=== PATIENT | female | born 1955 | race Asian ===

== ENCOUNTER 2017-02-03 12:41 | Emergency (ER) | payer BC ==
[~2017-02-03] VITALS: Ht 149.9 cm; Wt 45.4 kg
[2017-02-03] MEDS ORDERED: BRIN8DRO EACHEYE (13:07)
[2017-02-03] MEDS ORDERED: HYDR25TA6 PO (13:07)
[2017-02-03] MEDS ORDERED: [UNRECOGNIZED DRUG - CODE] PO (13:07)
[2017-02-03] MEDS ORDERED: TIMO5DRO28 EACHEYE (13:07)
[2017-02-03] MEDS ORDERED: LAMI100T4 PO (13:07)
[2017-02-03] MEDS ORDERED: BIMA2.5D EACHEYE (13:07)
[2017-02-03] MEDS ORDERED: POTA99TA24 PO (13:07)
[2017-02-03] MEDS ORDERED: AMLO10TA2 PO (13:07)
[2017-02-03] MEDS ORDERED: NADO40TA PO (13:07)
[2017-02-03 13:47] LABS: HEMATOCRIT 45.7 % (34.6-47.8); HEMOGLOBIN 15.6 g/dL (11.7-16.4); WHITE BLOOD COUNT 6.7 x10^3/uL (3.4-10)
[2017-02-03 13:57] LABS: BLOOD UREA NITROGEN 14 mg/dL (7-18)
[2017-02-03] MEDS ORDERED: POTASSIUM CHLORIDE 10% 40 MEQ/30 ML UDC PO ONE (15:00)
[2017-02-03] MEDS ORDERED: HYDROcodone/APAP 5/325 TABLET PO ONE (15:00)
[2017-02-03] MEDS ORDERED: HYDROcodone/APAP 5/325 TABLET ONE (15:13)
[2017-02-03] MEDS ORDERED: POTASSIUM CHLORIDE 20 MEQ TAB.ER.PRT PO ONE ×2 (15:30)
[2017-02-03 16:37] VITALS: BP 153/92
[2017-02-04] MEDS ORDERED: POTA20TA6 PO (15:13)
== END 2017-02-03 16:39 | disposition home or self-care (01) ==
LOC: ED 13:46
DX: H54.61 Unqualified visual loss, right eye, normal vision left eye (principal); R51 Headache; E87.6 Hypokalemia; I10 Essential (primary) hypertension; B19.10 Unspecified viral hepatitis B without hepatic coma; E78.5 Hyperlipidemia, unspecified; Z82.3 Family history of stroke; Z88.2 Allergy status to sulfonamides
CPT/HCPCS: 36415; 70450; 80048; 82040; 85025; 85651

== ENCOUNTER 2017-02-04 14:13 | Inpatient (IN) | payer BC ==
[~2017-02-04] VITALS: Ht 149.9 cm; Wt 47.1 kg
[~2017-02-04 14:13] MED LIST: AMLO10TA2 PO; BIMA2.5D EACHEYE; BRIN8DRO EACHEYE; HYDR25TA6 PO; LAMI100T4 PO; NADO40TA PO; POTA99TA24 PO; TIMO5DRO28 EACHEYE; [UNRECOGNIZED DRUG - CODE] PO
[2017-02-04] MEDS ORDERED: methylPREDNISolone SOD SUCC 125 MG/2 ML IVPush SCH (15:00)
[2017-02-04 15:13] LABS: HEMATOCRIT 47.5 % (34.6-47.8); HEMOGLOBIN 16.2 g/dL (11.7-16.4); WHITE BLOOD COUNT 5.2 x10^3/uL (3.4-10)
[2017-02-04] MEDS ORDERED: POTA20TA6 PO (15:13)
[2017-02-04 15:20] LABS: BLOOD UREA NITROGEN 11 mg/dL (7-18)
[2017-02-04 15:23] LABS: ASPARTATE AMINO TRANSFERASE 26 U/L (15-37)
[2017-02-04] MEDS ORDERED: HYDROcodone/APAP 5/325 TABLET PO PRN (16:30)
[2017-02-04] MEDS ORDERED: BISACODYL 10 MG SUPP PR PRN (16:30)
[2017-02-04] MEDS ORDERED: LABETALOL 5MG/ML, 20ML IVPush PRN (16:30)
[2017-02-04] MEDS ORDERED: POLYETHYLENE GLYCOL 17 GM PACKET PO PRN (16:30)
[2017-02-04] MEDS ORDERED: DOCUSATE 100 MG CAPSULE PO PRN (16:30)
[2017-02-04] MEDS ORDERED: ENALAPRILAT 1.25 MG/ML, 2ML IVPush PRN (16:30)
[2017-02-04] MEDS ORDERED: ACETAMINOPHEN 325 MG TABLET PO PRN (16:30)
[2017-02-04] MEDS ORDERED: morphine SULFATE 10 MG/ML, 1ML IVPush PRN (16:30)
[2017-02-04] MEDS ORDERED: ONDANSETRON 2MG/ML, 2ML IVPush PRN (16:30)
[2017-02-04] MEDS ORDERED: POTASSIUM CHLORIDE 20 MEQ TAB.ER.PRT PO ONE (17:00)
[2017-02-04] MEDS: TEMPLATE NON-FORMULARY MED. (Bimatoprost (Lumigan) 1 DROP) EACHEYE SCH (17:30)
[2017-02-04] MEDS ORDERED: TIMOLOL OPHTH 0.5%, 5ML OP SCH (17:30)
[2017-02-04] MEDS: METOPROLOL TARTRATE 50 MG TABLET PO SCH (18:02)
[2017-02-04] MEDS: ASPIRIN 325 MG TABLET EC PO SCH (18:02)
[2017-02-04] MEDS: ENOXAPARIN 40 MG/0.4 ML SQ SCH (18:06)
[2017-02-04] MEDS ORDERED: OMNIPAQUE 350 MG/ML, 100ML BOTTLE ONE (18:59)
[2017-02-04 20:46] VITALS: BP 117/74
[2017-02-04] MEDS: INSULIN ASPART 100 UNITS/ML, PEN SQ-INSULIN SCH (21:25)
[2017-02-05 02:00] VITALS: BP 121/77
[2017-02-05] MEDS: METOPROLOL TARTRATE 50 MG TABLET PO SCH ×2 (05:09→18:22)
[2017-02-05] MEDS: ASPIRIN 325 MG TABLET EC PO SCH (05:09)
[2017-02-05 05:10] VITALS: BP 123/80
[2017-02-05 06:05] LABS: HEMATOCRIT 46.1 % (34.6-47.8); HEMOGLOBIN 15.7 g/dL (11.7-16.4); WHITE BLOOD COUNT 12.6 x10^3/uL (3.4-10)
[2017-02-05 06:29] LABS: ASPARTATE AMINO TRANSFERASE 25 U/L (15-37); BLOOD UREA NITROGEN 16 mg/dL (7-18)
[2017-02-05] MEDS: INSULIN ASPART 100 UNITS/ML, PEN SQ-INSULIN SCH ×4 (07:00→21:00)
[2017-02-05 07:15] VITALS: BP 118/74
[2017-02-05] MEDS: TEMPLATE NON-FORMULARY MED. (Bimatoprost (Lumigan) 1 DROP) EACHEYE SCH (09:00)
[2017-02-05] MEDS ORDERED: TIMOLOL OPHTH 0.5%, 5ML OP SCH (09:00)
[2017-02-05] MEDS: TIMOLOL OPHTH 0.5%, 5ML OP SCH (09:00)
[2017-02-05] MEDS: [UNRECOGNIZED DRUG - OTHER] HOMEMEDPO SCH (09:00)
[2017-02-05] MEDS ORDERED: LAMIVUDINE 100 MG TABLET PO SCH (09:00)
[2017-02-05] MEDS: AMLODIPINE 5 MG TABLET PO SCH (09:52)
[2017-02-05] MEDS: HYDROCHLOROTHIAZIDE 25 MG TABLET PO SCH (09:52)
[2017-02-05] MEDS: POTASSIUM CHLORIDE 20 MEQ TAB.ER.PRT PO SCH (09:52)
[2017-02-05 12:46] VITALS: BP 110/67
[2017-02-05] MEDS ORDERED: LORATADINE 10 MG TABLET PO PRN (13:30)
[2017-02-05] MEDS ORDERED: GADOBUTROL 7.5 MMOL/7.5 ML PFS ONE (13:56)
[2017-02-05] MEDS: ENOXAPARIN 40 MG/0.4 ML SQ SCH (18:23)
[2017-02-05 20:31] VITALS: BP 115/74
[2017-02-05] MEDS: BIMATOPROST EACHEYE SCH (21:00)
[2017-02-06 02:53] VITALS: BP 118/71
[2017-02-06] MEDS: ASPIRIN 325 MG TABLET EC PO SCH (03:30)
[2017-02-06 04:11] LABS: TOXOPLASMA GONDII IGG <3.0 IU/mL (0.0-7.1); TOXOPLASMA GONDII IGM <3.0 AU/mL (0.0-7.9)
[2017-02-06] MEDS: METOPROLOL TARTRATE 50 MG TABLET PO SCH ×2 (05:07→18:41)
[2017-02-06 05:08] VITALS: BP 115/65
[2017-02-06 05:34] LABS: HEMATOCRIT 42.2 % (34.6-47.8); HEMOGLOBIN 14.4 g/dL (11.7-16.4); WHITE BLOOD COUNT 14.4 x10^3/uL (3.4-10)
[2017-02-06 05:44] LABS: BLOOD UREA NITROGEN 21 mg/dL (7-18)
[2017-02-06] MEDS: INSULIN ASPART 100 UNITS/ML, PEN SQ-INSULIN SCH ×4 (07:00→20:25)
[2017-02-06 07:45] VITALS: BP 126/76
[2017-02-06] MEDS ORDERED: POTASSIUM CHLORIDE 40 MEQ in SODIUM CHLORIDE 0.9% 500 ML IV ONE (08:00)
[2017-02-06] MEDS: POTASSIUM CHLORIDE 20 MEQ TAB.ER.PRT PO SCH (08:58)
[2017-02-06] MEDS: [UNRECOGNIZED DRUG - OTHER] HOMEMEDPO SCH (08:58)
[2017-02-06] MEDS: AMLODIPINE 5 MG TABLET PO SCH (08:58)
[2017-02-06] MEDS: HYDROCHLOROTHIAZIDE 25 MG TABLET PO SCH (08:58)
[2017-02-06] MEDS: LAMIVUDINE 100 MG TABLET PO SCH (08:59)
[2017-02-06] MEDS: TIMOLOL OPHTH 0.5%, 5ML OP SCH (09:46)
[2017-02-06 12:55] VITALS: BP 102/58
[2017-02-06] MEDS ORDERED: ROPivacaine/PF 0.2%, 10 ML ONE (13:28)
[2017-02-06] MEDS ORDERED: LIDOCAINE 1%, 20ML ONE (13:28)
[2017-02-06 13:54] LABS: RAPID PLASMA REAGIN Nonreactive (Nonreactive)
[2017-02-06 14:47] VITALS: BP 113/70
[2017-02-06 15:00] LABS: CYTOLOGY BODY FLUID RECD INTO PATHOLOGY; CYTOLOGY BODY FLUID SOURCE CEREBROSPINAL FLUID
[2017-02-06 19:10] LABS: ANA SCREEN NEGATIVE (Negative)
[2017-02-06] MEDS: BIMATOPROST EACHEYE SCH (20:25)
[2017-02-06 20:53] VITALS: BP 113/63
[2017-02-06] MEDS ORDERED: ATORVASTATIN 10 MG TABLET PO SCH (21:00)
[2017-02-07 01:39] VITALS: BP 116/73
[2017-02-07 05:20] VITALS: BP 121/77
[2017-02-07] MEDS: ASPIRIN 325 MG TABLET EC PO SCH (05:21)
[2017-02-07] MEDS: METOPROLOL TARTRATE 50 MG TABLET PO SCH (05:21)
[2017-02-07] MEDS: ENOXAPARIN 40 MG/0.4 ML SQ SCH (05:22)
[2017-02-07 05:50] LABS: HEMOGLOBIN 14.1 g/dL (11.7-16.4); WHITE BLOOD COUNT 9.9 x10^3/uL (3.4-10)
[2017-02-07 06:08] LABS: BLOOD UREA NITROGEN 19 mg/dL (7-18)
[2017-02-07] MEDS: INSULIN ASPART 100 UNITS/ML, PEN SQ-INSULIN SCH ×2 (07:00→11:00)
[2017-02-07 07:41] VITALS: BP 134/78
[2017-02-07] MEDS: LAMIVUDINE 100 MG TABLET PO SCH (09:00)
[2017-02-07] MEDS: [UNRECOGNIZED DRUG - OTHER] HOMEMEDPO SCH (09:00)
[2017-02-07] MEDS: AMLODIPINE 5 MG TABLET PO SCH (09:13)
[2017-02-07] MEDS: HYDROCHLOROTHIAZIDE 25 MG TABLET PO SCH (09:13)
[2017-02-07] MEDS: TIMOLOL OPHTH 0.5%, 5ML OP SCH (09:13)
[2017-02-07] MEDS: POTASSIUM CHLORIDE 20 MEQ TAB.ER.PRT PO SCH (09:13)
[2017-02-07 10:06] LABS: LYME DISEASE IGG/IGM TOTAL AB <0.91 ISR (0.00-0.90); LYME DISEASE IGM <0.80 index (0.00-0.79)
[2017-02-07 11:06] LABS: SPECIMEN SOURCE CSF (.); STREPTOCOCCUS PNEUMONIAE AG Negative (Negative)
[2017-02-07] MEDS ORDERED: ATOR10TA9 PO (12:32)
[2017-02-07] MEDS ORDERED: ASPI-650 PO (12:32)
[2017-02-10 10:06] LABS: CRYPTOCOCCUS ANTIGEN CSF Negative (Negative); MANDATED REFLEX TO CULTURE Not Indicated (.)
[2017-02-10 11:06] LABS: BETA STREP (GROUP B) AG Negative (Negative); HAEMOPHILUS INFLUENZAE B AG Negative (Negative); NEISSERIA MENINGITIDIS AG Negative (Negative)
== END 2017-02-07 14:56 | disposition home or self-care (01) | DRG 125 ==
LOC: ED 15:35 → EDIP 16:00 → 4EST 16:41 → DCLOUNGE 02-07 14:37
PROVIDERS: ADMIT Hospitalist; ATTEND Hospitalist
PROC: 009U3ZX Drainage of Spinal Canal, Percutaneous Approach, Diagnostic (ICD-10-PCS; principal; 2017-02-06)
PROC: B01B1ZZ Fluoroscopy of Spinal Cord using Low Osmolar Contrast (ICD-10-PCS; 2017-02-06)
DX: H54.61 Unqualified visual loss, right eye, normal vision left eye (principal); M31.6 Other giant cell arteritis; B19.10 Unspecified viral hepatitis B without hepatic coma; G36.0 Neuromyelitis optica [Devic]; H47.013 Ischemic optic neuropathy, bilateral; E78.5 Hyperlipidemia, unspecified; E87.6 Hypokalemia; I10 Essential (primary) hypertension; H26.9 Unspecified cataract; H40.9 Unspecified glaucoma; D72.829 Elevated white blood cell count, unspecified; Z82.3 Family history of stroke; Z83.511 Family history of glaucoma; Z82.49 Family history of ischemic heart disease and other diseases of the circulatory system; Z88.2 Allergy status to sulfonamides; Z88.8 Allergy status to other drugs, medicaments and biological substances
CPT/HCPCS: 36415; 62270; 70496; 70543; 70544; 70553; 80048; 80053; 80061; 82040; 82042; 82164; 82784; 82962; 83520; 83873; 84157; 85025; 85549; 85651; 86038; 86141; 86480; 86592; 86618; 86645; 86695; 86696; 86762; 86777; 86778; 87070; 87075; 87102; 87116; 87205; 87206; 87252; 87802; 87899; 88108; 89051; 93880; 96365; 96366; A9585; J1650; J1815; J2795; J2930; J3480; J3490; Q9967; J7040; J7512

== ENCOUNTER 2017-05-13 20:00 | Emergency (ER) | payer BC, OTHER ==
[~2017-05-13] VITALS: Ht 149.9 cm; Wt 47.4 kg
[~2017-05-13 20:00] MED LIST changes: +ASPI-650 PO; +ATOR10TA9 PO; +POTA20TA6 PO
[2017-05-13] MEDS ORDERED: ENAL5TAB PO (20:49)
[2017-05-13] MEDS ORDERED: PRAV10TA2 PO (20:49)
[2017-05-13] MEDS ORDERED: PRED20TA PO (20:50)
[2017-05-13] MEDS ORDERED: PROCHLORPERAZINE 5 MG/ML, 2ML ONE (21:20)
[2017-05-13] MEDS ORDERED: DIPHENHYDRAMINE 50 MG/ML, 1ML ONE (21:20)
[2017-05-13] MEDS ORDERED: KETOROLAC 30 MG/1 ML ONE (21:20)
[2017-05-13 21:28] LABS: BASOPHILS % (AUTO) 1 % (0-1); EOSINOPHILS % (AUTO) 0 % (1-7); LYMPHOCYTES # (AUTO) 1.77 x10^3/uL (1-3.4); LYMPHOCYTES % (AUTO) 19 % (22-44); MD NO; MEAN CORPUSCULAR HEMOGLOBIN 30.3 pg (27.0-34.8); MEAN CORPUSCULAR HGB CONC 33.5 g/dL (32.4-35.8); MEAN CORPUSCULAR VOLUME 90.3 fL (80-100); MEAN PLATELET VOLUME 7.7 fL (7.4-10.4); MONOCYTES # (AUTO) 0.47 x10^3/uL (0.2-0.8); MONOCYTES % (AUTO) 5 % (2-9); NEUTROPHILS # (AUTO) 6.83 x10^3/uL (1.8-6.8); NEUTROPHILS % (AUTO) 74 % (42-75); PLATELET COUNT 231 x10^3/uL (130-400); RED BLOOD COUNT 4.92 x10^6/uL (3.82-5.3); RED CELL DISTRIBUTION WIDTH 13.6 % (9.6-15.2)
[2017-05-13] MEDS ORDERED: KETOROLAC 30 MG/1 ML IVPush ONE (21:30)
[2017-05-13] MEDS ORDERED: SODIUM CHLORIDE FLUSH 10ML SYR IVF ONE (21:30)
[2017-05-13] MEDS ORDERED: PROCHLORPERAZINE 5 MG/ML, 2ML IVPush ONE (21:30)
[2017-05-13] MEDS ORDERED: SODIUM CHLORIDE 0.9% 1,000ML IVBOLUS ONE (21:30)
[2017-05-13] MEDS ORDERED: DIPHENHYDRAMINE 50 MG/ML, 1ML IVPush ONE (21:30)
[2017-05-13 21:40] LABS: ALANINE AMINOTRANSFERASE 37 U/L (12-78); ALBUMIN 3.7 g/dL (3.4-5.0); ANION GAP 7 mmol/L (5-15); CHLORIDE 108 mmol/L (98-107); CREATININE 0.59 mg/dL (0.55-1.02)
[2017-05-13 21:44] LABS: ALKALINE PHOSPHATASE 79 U/L (45-117); BILIRUBIN,TOTAL 0.5 mg/dL (0.2-1.0); TOTAL PROTEIN 7.2 g/dL (6.4-8.2); TROPONIN I < 0.015 ng/mL (0.000-0.045)
[2017-05-13 22:33] VITALS: BP 141/91
== END 2017-05-13 22:35 | disposition home or self-care (01) ==
LOC: ED 22:30
DX: G43.909 Migraine, unspecified, not intractable, without status migrainosus (principal); I10 Essential (primary) hypertension; E78.5 Hyperlipidemia, unspecified
CPT/HCPCS: 36415; 71045; 80053; 84484; 85025; 93005; 96361; 96374; 96375; 99285; J0780; J1200; J1885; J7030

== ENCOUNTER 2018-03-01 15:52 | Emergency (ER) | payer OTHER ==
[~2018-03-01] VITALS: Ht 154.9 cm; Wt 47.1 kg
[~2018-03-01 15:52] MED LIST changes: -AMLO10TA2 PO; +AMLO10TA6 PO; +ENAL5TAB PO; +PRAV10TA2 PO; +PRED20TA PO
[2018-03-01 15:56] VITALS: BP 115/76
[2018-03-01] MEDS ORDERED: SODIUM CHLORIDE FLUSH 10ML SYR IVF ONE (16:00)
[2018-03-01] MEDS ORDERED: methylPREDNISolone SOD SUCC 125 MG/2 ML IVP ONE (16:00)
== END 2018-03-01 17:20 | disposition home or self-care (01) ==
LOC: ED 17:00
DX: Z00.00 Encounter for general adult medical examination without abnormal findings (principal); I10 Essential (primary) hypertension; E78.5 Hyperlipidemia, unspecified; K75.9 Inflammatory liver disease, unspecified
CPT/HCPCS: 96365; 99283; J2930

== ENCOUNTER 2018-03-02 15:47 | Emergency (ER) | payer OTHER ==
[~2018-03-02] VITALS: Ht 152.4 cm; Wt 46.0 kg
[2018-03-02] MEDS ORDERED: SODIUM CHLORIDE FLUSH 10ML SYR IVF ONE (16:00)
[2018-03-02 17:58] VITALS: BP 134/86
== END 2018-03-02 18:01 | disposition home or self-care (01) ==
LOC: ED 17:30
DX: H46.9 Unspecified optic neuritis (principal); L30.9 Dermatitis, unspecified; Z76.0 Encounter for issue of repeat prescription; I10 Essential (primary) hypertension; E78.5 Hyperlipidemia, unspecified
CPT/HCPCS: 96365; 99283; J2930